=== PATIENT | female | born 1975 | race Caucasian/White ===

== ENCOUNTER 2024-02-03 10:42 | Emergency (ER) | payer MEDICAID, SELFPAY ==
[2024-02-03 10:57] VITALS: PULSE 99; RESP 18; O2SAT 98
[2024-02-03 11:12] VITALS: BP 150/82; PULSE 88; RESP 16; TEMP 37; O2SAT 98; BMI 27.6
--- NOTE | 2024-02-03 11:20 | PD.EDNV ---
Nausea/Vomit./Diarrhea-RME/HPI General Chief complaint: Nausea/Vomiting/Diarrhea Stated complaint: N/V Time Seen by Provider: 02/03/24 11:11 Source: patient Arrival date/time: 02/03/24 10:42 48-year-old female presented to the emergency department with nausea and vomiting that began this morning. Patient reports she is having some mild muscle aches. History of chronic pain and currently on methadone. Patient states she has been on 67 mg of methadone daily. Has mild dysuria. Mode of arrival: ambulatory Related Data Previous Rx's ?Medication ?Instructions ?Recorded lidocaine 5 % topical ointment 1 applic topical QDAY PRN pain #30 01/16/22 grams methylprednisolone 4 mg tablets in 4 mg PO QAM #21 tabs 01/16/22 a dose pack (Medrol (Oh)) naproxen 500 mg tablet (Naprosyn) 500 mg PO BID PRN pain #30 tabs 01/16/22 guaifenesin 200 mg/5 mL oral liquid 200 mg (5 mL) PO Q6H PRN cough 02/25/22 #118 mL tramadol 50 mg tablet 50 mg PO BID PRN pain #7 tabs 10/07/22 ondansetron 4 mg disintegrating 4 mg PO Q8H 48 hours #6 tabs 02/03/24 tablet Allergies Allergy/AdvReac Type Severity Reaction Status Date / Time belladonna alkaloids Allergy Unknown OVERDOSED Verified 10/07/22 13:36 ON WHEN A CHILD Review of Systems Review of Systems Systems Reviewed: All systems reviewed, normal except as documented Narrative Review of Systems: Gen: No fever, no chills, no weight loss EYES: No discharge, no visual changes, no pain HEENT: No ear pain, no congestion, no sore throat PULM: No shortness of breath, no cough, no congestion CV: No chest pain, no dyspnea on exertion, no palpitations GI: + nausea, + vomiting, no diarrhea, no pain, no constipation : No frequency, no urgency, no dysuria Musc/skel: No joint pain, no back pain Skin: No rash Psyc: No hallucinations, no depression Heme/Lymph: No easy bleeding or bruising tendencies Neuro: No weakness, no headache ED Exam Narrative Physical exam: General: Sittiing in Exam table in no acute distress, answering questions appropriately HENT: normocephalic, atraumatic, EOMI, PERRLA, moist mucous membranes Chest: chest wall is nontender Cardiac: regular rate and rhythm, normal S1 and S2, no murmurs, rubs, or gallops, capillary refill ?2 seconds Pulmonary: clear to auscultation bilaterally, no wheezing, crackles, or rhonchi Abdominal: active bowel sounds, soft, nontender, nondistended Neuro: A&OX3, CN II-XII intact, sensation grossly intact bilaterally in UE and LE. Skin: no rashes, no ecchymosis Ext: no lower extremity edema Course Quality Measures none Orders Category Date Time Status CBC Stat Lab 02/03/24 11:42 Completed Comprehensive Metabolic Panel Stat Lab 02/03/24 11:42 Completed HCG Qualitative,Urine Stat Lab 02/03/24 11:50 Completed Lipase Stat Lab 02/03/24 11:42 Completed Urinalysis Stat Lab 02/03/24 11:50 Completed Ondansetron Odt [Zofran Odt] Med 02/03/24 11:22 Discontinued 4 mg PO X1 ONE Vital Signs Vital signs: Vital Signs Temperature 98.6 F 02/03/24 11:12 Pulse Rate 88 02/03/24 11:12 Respiratory Rate 16 02/03/24 11:12 Blood Pressure 150/82 H 02/03/24 11:12 Pulse Oximetry (%) 98 02/03/24 11:12 Oxygen Delivery Method Room Air 02/03/24 11:12 Nausea/Vomiting/Diarrhea Patient data External records reviewed:: [facility] previous records Clinical information provided by:: patient Social determinants that could affect healthcare access:: none Patient has the following chronic illnesses:: none How is presenting disease/condition affected by chronic disease/condition?: no chronic disease Evaluation data The following diagnostics were reviewed and interpreted by me:: lab results Lab and/or radiology exams considered but not ordered:: no Interpretation Summary: n/a Medications / Prescriptions Medications / Prescriptions considered but not ordered:: no Medication administrations:: Medication Administration History Discontinued Medications Ondansetron HCl (Ondansetron Odt 4 Mg Tabrap) 4 mg PO X1 ONE; Protocol Stop: 02/03/24 11:23 Last Admin: 02/03/24 11:51 Dose: 4 mg Documented By: NEELA All medications administered and effective Consultations Consultation(s) initiated? (list below): No Diagnosis Nausea Differential Diagnosis: traveler's diarrhea, food poisoning, gastroenteritis, dehydration and other (UTI) Most likely diagnosis given after review of the tests above:: Nausea vomiting Admission Indicated Admission indicated?: not indicated Admission Request Was there a request for admission?: No Disposition Plan Disposition Plan: Discharge Discharge Attestation Discharge Attestation: The patient and all family members were given an opportunity to ask questions and understood the discharge instructions. Discharge instructions specifically effects, indications for sooner follow up or return to the emergency department, and the expected course of current diagnosis. Patient condition: Stable Discharge Plan Plan Patient Disposition: HOME (Self Care) Prescriptions/Referrals Prescriptions/Med Rec: New ondansetron 4 mg tablet,disintegrating 4 mg PO Q8H 2 Days Qty: 6 0RF No Action methylprednisolone [Medrol (Oh)] 4 mg tablets,dose pack 4 mg PO QAM Qty: 21 0RF Rx Instructions: Use as directed. naproxen [Naprosyn] 500 mg tablet 500 mg PO BID PRN (Reason: pain) Qty: 30 0RF lidocaine 5 % ointment 1 applic topical QDAY PRN (Reason: pain) Qty: 30 0RF guaifenesin 200 mg/5 mL liquid 200 mg PO Q6H PRN (Reason: cough) Qty: 118 0RF tramadol 50 mg tablet 50 mg PO BID PRN (Reason: pain) Qty: 7 0RF Referrals: King Saini MD [Primary Care Provider] - In 1 week Problem List Clinical Impression: Nausea & vomiting, Methadone dependence Patient/Caregiver Discharge Instructions Discharge Activity: activity as tolerated Education Materials: ED Vomiting (Adult) Additional Instructions: - Please follow-up with your primary doctor or clinic -Your labs are normal today. Increase hydration. A nausea medication was sent to the pharmacy. Return to the emergency department with any worsening symptoms change in condition. Print Language: Danish Stand Alone Forms: Sary Award Info., Patient Portal Info Letter PA/CENTER LEAD CONSULTANT Supervising Physician PA/CENTER LEAD CONSULTANT Supervising Physician: Dr. MALDONADO
[2024-02-03] MEDS: ONDANSETRON ODT 4 MG TABRAP PO (11:51)
[2024-02-03 11:57] LABS: Basophils % (Auto) 0 % (0-2.5); Eosinophils # (Auto) 0.2 Thou/mm3 (0.0-0.5); Eosinophils % (Auto) 1 % (0-10); Hematocrit 38.9 % (36.0-46.0); Hemoglobin 12.9 g/dL (12.0-16.0); Immature Granulocytes % (Auto) 0 % (0-0); Immature Granulocytes Auto 0.03 Thou/mm3 (0.00-0.00); Lymphocytes # (Auto) 1.5 Thou/mm3 (1.0-4.8); Lymphocytes % (Auto) 14 % (10-50); Mean Corpuscular HGB Conc 33.2 g/dl (31.0-37.0); Mean Corpuscular Volume 84 fL (80-100); Monocytes # (Auto) 0.5 Thou/mm3 (0.0-0.8); Monocytes % (Auto) 5 % (0-12); Neutrophils # (Auto) 8.6 Thou/mm3 (1.8-7.7); Neutrophils % (Auto) 79 % (37-80); Nucleated Red Blood Cell % 0 /100 WBC (0); Platelet Count 312 Thou/mm3 (140-440); RDW Standard Deviation 46.7 fL (36.4-46.3); Red Blood Count 4.61 Miln/mm3 (4.00-5.20); White Blood Count 10.8 Thou/mm3 (3.6-11.0)
[2024-02-03 11:57] LABS: Collection Type, Urine Clean Catch
[2024-02-03 12:04] LABS: HCG Qualitative,Urine Negative
[2024-02-03 12:13] LABS: Bacteria,Urine 1+; Bilirubin,Urine Negative (Negative); Blood,Urine 3+ (Negative); Clarity,Urine Clear (Clear/Hazy); Color,Urine Yellow (Lt Yel-Yel); Glucose, Urine Negative (Negative); Hyaline Casts,Urine < 1 /hpf (0-1); Ketones,Urine Negative (Negative); Leukocyte Esterase,Urine Positive (Negative); Nitrite,Urine Negative (Negative); PH,Urine 5.5 (5.0-7.0); Protein,Urine 1+ (Neg - Trace); RBC,Urine 115 /hpf (0-3); Specific Gravity,Urine 1.035 (1.001-1.035); Squamous Epithelial Cell,Urine 4 /hpf (0-5); Urobilinogen,Urine Negative mg/dL (0.0-1.0); WBC,Urine 7 /hpf (0-5)
[2024-02-03 12:19] LABS: Alanine Aminotransferase 31 U/L (10-49); Albumin, Serum 4.8 gm/dL (3.5-5.0); Albumin/Globulin Ratio 1.6 (1.2-2.2); Alkaline Phosphatase 80 U/L (46-116); Anion Gap 9 (7-16); Aspartate Amino Transferase 23 U/L (0-34); BUN/Creatinine Ratio 15 Ratio (12-20); Bilirubin,Total 0.3 mg/dL (0.3-1.2); Blood Urea Nitrogen 12 mg/dL (9-23); Calcium 9.5 mg/dL (8.3-10.6); Calcium (Corrected) 9.5 mg/dL (8.5-10.1); Carbon Dioxide 20.9 mMol/L (20.0-31.0); Chloride 107 mMol/L (98-107); Creatinine (Component) 0.8 mg/dL (0.6-1.3); Estimated Creatinine Clearance 78.9 mL/min (>60); Glucose 78 mg/dL (74-106); Lipase 61 U/L (12-53); Osmolality,Calculated 272 (275-295); Sodium 137 mMol/L (136-145); Total Protein 7.8 gm/dL (5.7-8.2); eGFR > 60 See Note
== END 2024-02-03 15:49 | disposition home or self-care (01) ==
PROVIDERS: Nurse Practitioner Primary Care; Emergency Provider Emergency Medicine; PCP Family Medicine
DX: R11.2 Nausea with vomiting, unspecified (principal); F11.20 Opioid dependence, uncomplicated
CPT/HCPCS: 36415; 80053; 81001; 81025; 83690; 85025; 99283; Q0162

== ENCOUNTER 2025-02-10 13:22 | Emergency (ER) | payer MEDICAID, SELFPAY ==
--- NOTE | 2025-02-10 13:25 | XR_ITS ---
EXAMINATION: PA chest single view TECHNIQUE: Upright PA chest single view Date and time: February 10, 2025, 1341 hours INDICATIONS: Shortness of breath chest pain today FINDINGS: Normal heart size Minor subsegmental atelectasis left lung No pneumonia or pulmonary edema The osseous structures are intact IMPRESSION: No pneumonia or pulmonary edema
--- NOTE | 2025-02-10 13:25 | EKG_ITS ---
[facility] Test Date: 2025-02-10 Pat Name: BREANNA BOOTH Department: Room: - Gender: Female Digital Marketing Project Manager: : 1975 Requested By: Chase Salgado Order Number: [id number] Reading MD: Chase Salgado Measurements Intervals [place] Rate: 75 P: 39 OH: 151 QRS: 19 QRSD: 80 T: 29 QT: 361 QTc: 404 Interpretive Statements SINUS RHYTHM MODERATE ST DEPRESSION [0.05+ mV ST DEPRESSION] Compared to ECG 12/08/2023 07:19:46 No significant changes /store/S0/[id number]/[id number].pdf
--- NOTE | 2025-02-10 13:26 | EDNOTE_ITS ---
ED Chest Pain RME/HPI General Stated Complaint: SOB Time Seen by Provider: 02/10/25 13:25 Arrival date/time: 02/10/25 13:22 49-year-old female patient with significant history of chronic smoking, and history of asthma when she was young, came in for evaluation regarding shortness of breath. According to the patient started last night's shortness of breath, described as cannot take a deep breath. Patient denies any fever denies any chest pain denies any cough. Denies any other complaints patient told me that she just quit smoking few days ago. Related Data Previous Rx's ?Medication ?Instructions ?Recorded lidocaine 5 % topical ointment 1 applic topical QDAY P RN pain #30 01/16/22 grams methylprednisolone 4 mg tablets in 4 mg PO QAM #21 tab s 01/16/22 a dose pack (Medrol (Oh)) naproxen 500 mg tablet (Naprosyn) 500 mg PO BID PRN pa in #30 tabs 01/16/22 guaifenesin 200 mg/5 mL oral liquid 200 mg (5 mL) PO Q 6H PRN cough 02/25/22 #118 mL tramadol 50 mg tablet 50 mg PO BID PRN pain #7 tab s 10/07/22 albuterol sulfate 90 mcg/actuation 2 inh inhalation Q6 H PRN shortness 02/10/25 aerosol inhaler of breath or wheezing #8.5 g nanette prednisone 50 mg tablet 50 mg PO QDAY #7 tabs Allergies Allergy/AdvReac Type Severity Reaction Status Date / Time belladonna alkaloids Allergy Unknown OVERDOSED Verified 02/10/25 13:43 ON WHEN A CHILD Review of Systems Review of Systems Narrative Review of Systems: Review of system reviewed and within normal limits except mentioned in HPI ED Exam Narrative Physical exam: VITAL SIGNS: Reviewed. GENERAL APPEARANCE: Alert and interactive, follows commands, no acute distress, HEAD AND FACE: Non-traumatic. ENT: PERRL, pink conjunctivitis, eyelid no trauma, Mucous membrane moist. NECK: Supple, nontender, no nuchal rigidity. CHEST: No tenderness, no crepitus, no paradoxical movement, no retractions. LUNGS: Clear, well ventilated, symmetric, no rales, no wheezing, no ronchi, no stridor, good breath sounds bilaterally. HEART: Regular rate, regular rhythm, no murmur, no gallops. ABDOMEN: Soft, positive bowel sounds, nondistended, no guarding, nontender, no rebound, no masses, RECTAL: Deferred. GENITAL: Deferred. NEUROLOGICAL: Gross motor function intact sensory function intact, Appropriate for age. MUSCULOSKELETAL: low back nontender, full range of motion. EXTREMITIES: Nontender, full range of motion. SKIN: Color pink, dry, no rash, no lacerations, no abrasions, no contusions. LYMPHATICS: Deferred. Course Quality Measures none Orders Category Date Time Status EKG (ED ONLY) *Do not use* NOW Care 02/10/25 13:25 Completed EKG (ED Only) Stat Exams 02/10/25 13:25 Draft XR chest 1V Stat Exams 02/10/25 13:25 Completed B-Type Natriuretic Peptide Stat Lab 02/10/25 14:06 Completed CBC Stat Lab 02/10/25 14:06 Completed Comprehensive Metabolic Panel Stat Lab 02/10/25 14:06 Completed D-Dimer Stat Lab 02/10/25 14:06 Completed Partial Thromboplastin Time Stat Lab 02/10/25 14:06 Completed Troponin I Stat Lab 02/10/25 14:06 Completed Dexamethasone Inj [Decadron Inj] Med 02/10/25 13:25 Discontinued 10 mg PO X1 ONE Vital Signs Vital signs: Vital Signs Temperature 98.8 F 02/10/25 13:34 Pulse Rate 81 02/10/25 13:34 Respiratory Rate 18 02/10/25 13:34 Blood Pressure 169/96 H 02/10/25 13:34 Pulse Oximetry (%) 100 02/10/25 13:34 Oxygen Delivery Method Room Air 02/10/25 13:34 Chest Pain MDM Narrative MDM Narrative:: 49-year-old female patient with significant history of chronic smoking, and history of asthma when she was young, came in for evaluation regarding shortness of breath. According to the patient started last night's shortness of breath, described as cannot take a deep breath. Patient denies any fever denies any chest pain denies any cough. Denies any other complaints patient told me that she just quit smoking few days ago. Patient's chest x-ray came back unremarkable. EKG showed sinus rhythm, ventricular rate of 75 bpm, no ST segment elevation depression noted. Patient will including troponin came back normal. Patient was given a dose of Decadron and patient told me that her symptoms is completely gone. Patient was noted to be satting 100% on room air Patient data External records reviewed:: None Clinical information provided by:: patient Social determinants that could affect healthcare access:: none Patient has the following chronic illnesses:: History of asthma How is presenting disease/condition affected by chronic disease/condition?: exacerbated by Evaluation data The following diagnostics were reviewed and interpreted by me:: lab results, radiology exam(s) and EKG tracing(s) Lab and/or radiology exams considered but not ordered:: None Interpretation Summary: See above Medications / Prescriptions Medications or Prescriptions considered but not ordered:: None Medication administrations:: Medication Administration History Discontinued Medications Dexamethasone Sodium Phosphate (Dexamethasone Sod Phos Inj 10 Mg/Ml Vial) 10 mg PO X1 ONE Stop: 02/10/25 13:26 Last Admin: 02/10/25 14:22 Dose: 10 mg Documented By: Decadron Consultations Consultation(s) initiated? (list below): No Diagnosis Chest Pain Differential Diagnosis: pneumothorax, stable angina and chest pain Most likely diagnosis given after review of the tests above:: Shortness of breath, history of asthma Admission Indicated Admission indicated?: not indicated Admission Request Was there a request for admission?: No Disposition Plan Disposition Plan: Discharge Discharge Attestation Discharge Attestation: The patient was given an opportunity to ask questions and understood the discharge instructions. Discharge instructions specifically effects, indications for sooner follow up or return to the emergency department, and the expected course of current diagnosis. Patient condition: Stable Discharge Plan Plan Patient Disposition: HOME (Self Care) Discharge Disposition comment: stable Prescriptions/Referrals Prescriptions/Med Rec: New prednisone 50 mg tablet 50 mg PO QDAY Qty: 7 0RF albuterol sulfate 90 mcg/actuation HFA aerosol inhaler 2 inh inhalation Q6H PRN (Reason: shortness of breath or wheezing) Qty: 8.5 0RF No Action methylprednisolone [Medrol (Oh)] 4 mg tablets,dose pack 4 mg PO QAM Qty: 21 0RF Rx Instructions: Use as directed. naproxen [Naprosyn] 500 mg tablet 500 mg PO BID PRN (Reason: pain) Qty: 30 0RF lidocaine 5 % ointment 1 applic topical QDAY PRN (Reason: pain) Qty: 30 0RF guaifenesin 200 mg/5 mL liquid 200 mg PO Q6H PRN (Reason: cough) Qty: 118 0RF tramadol 50 mg tablet 50 mg PO BID PRN (Reason: pain) Qty: 7 0RF Referrals: King Saini MD [Primary Care Provider, Family Practice] - In 1 week Problem List Clinical Impression: Shortness of breath, History of asthma Patient/Caregiver Discharge Instructions Discharge Activity: activity as tolerated Education Materials: ED Shortness of Breath (Dyspnea) Additional Instructions: Thank you for the opportunity for serving you today. You are stable for discharged . You are advised to: Follow-up with your PCP in 1 to 2 days Return to ED for worsening of symptoms Increase oral fluids Take medication as prescribed Print Language: Gabonese Stand Alone Forms: Sary Award Info., Patient Portal Info Letter PA/XAVIER Supervising Physician [facility]/XAVIER Supervising Physician: MD Lukasz
[2025-02-10 13:34] VITALS: BP 169/96; PULSE 81; RESP 18; TEMP 37.1; O2SAT 100
[2025-02-10 13:40] VITALS: PULSE 91; RESP 17; O2SAT 99
[2025-02-10 14:15] LABS: Basophils # (Auto) 0.0 Thou/mm3 (0.0-0.2); Basophils % (Auto) 0 % (0-2.5); Eosinophils # (Auto) 0.1 Thou/mm3 (0.0-0.5); Eosinophils % (Auto) 1 % (0-10); Hematocrit 39.6 % (36.0-46.0); Hemoglobin 13.8 g/dL (12.0-16.0); Immature Granulocytes Auto 0.02 Thou/mm3 (0.00-0.00); Lymphocytes # (Auto) 1.7 Thou/mm3 (1.0-4.8); Lymphocytes % (Auto) 26 % (10-50); Mean Corpuscular HGB Conc 34.8 g/dl (31.0-37.0); Mean Corpuscular Hemoglobin 30.1 pg (25.0-35.0); Mean Corpuscular Volume 86 fL (80-100); Monocytes # (Auto) 0.4 Thou/mm3 (0.0-0.8); Monocytes % (Auto) 7 % (0-12); Neutrophils # (Auto) 4.3 Thou/mm3 (1.8-7.7); Neutrophils % (Auto) 66 % (37-80); Nucleated Red Blood Cell # 0.00 Thou/mm3 (0.00-0.00); Nucleated Red Blood Cell % 0 /100 WBC (0); Platelet Count 237 Thou/mm3 (140-440); RDW Standard Deviation 42.2 fL (36.4-46.3); Red Blood Count 4.59 Miln/mm3 (4.00-5.20); White Blood Count 6.6 Thou/mm3 (3.6-11.0)
[2025-02-10] MEDS: DEXAMETHASONE SOD PHOS INJ 10 MG/ML VIAL PO (14:22)
[2025-02-10 14:30] LABS: Partial Thromboplastin Time 22.8 Seconds (22.0-36.0)
[2025-02-10 14:43] LABS: B-Type Natriuretic Peptide < 20 pg/mL (0-100)
[2025-02-10 14:54] LABS: D-Dimer < 250 ng/mL (<600)
[2025-02-10 14:59] LABS: Alanine Aminotransferase 8 U/L (10-49); Albumin, Serum 4.8 gm/dL (3.5-5.0); Albumin/Globulin Ratio 1.6 (1.2-2.2); Alkaline Phosphatase 63 U/L (46-116); Anion Gap 7 (7-16); Aspartate Amino Transferase 18 U/L (0-34); BUN/Creatinine Ratio 9 Ratio (12-20); Bilirubin,Total 0.4 mg/dL (0.3-1.2); Blood Urea Nitrogen 6 mg/dL (9-23); Calcium 9.2 mg/dL (8.3-10.6); Calcium (Corrected) 9.2 mg/dL (8.5-10.1); Carbon Dioxide 23.7 mMol/L (20.0-31.0); Chloride 110 mMol/L (98-107); Creatinine (Component) 0.7 mg/dL (0.6-1.3); Globulin 3.0 gm/dL (2.3-3.5); Glucose 102 mg/dL (74-106); Osmolality,Calculated 278 (275-295); Potassium 4.2 mMol/L (3.4-5.1); Sodium 141 mMol/L (136-145); Total Protein 7.8 gm/dL (5.7-8.2); Troponin I < 0.002 ng/mL (0.0-0.045); eGFR > 60 See Note
[2025-02-10 18:16] VITALS: BP 154/82; PULSE 84; RESP 16; TEMP 36.9; O2SAT 98
== END 2025-02-10 18:18 | disposition home or self-care (01) ==
PROVIDERS: Nurse Practitioner Family; Emergency Provider Emergency Medicine; PCP Family Medicine
DX: R06.02 Shortness of breath (principal); R07.9 Chest pain, unspecified; J45.909 Unspecified asthma, uncomplicated; R94.31 Abnormal electrocardiogram [ECG] [EKG]; Z79.52 Long term (current) use of systemic steroids; Z87.891 Personal history of nicotine dependence
CPT/HCPCS: 36415; 71045; 80053; 83880; 84484; 85025; 85379; 85730; 93005; 99283; J1100